=== PATIENT | male | born 1975 | race Hispanic/Latino ===

== ENCOUNTER 2019-04-04 17:24 | Emergency (ER) | payer OTHER ==
[2019-04-04] MEDS ORDERED: KETOROLAC TROMETHAMINE 30MG/ML ONE (17:45)
[2019-04-04] MEDS ORDERED: DIAZEPAM 5 MG TABLET ONE (17:46)
== END 2019-04-04 19:18 | disposition home or self-care (01) ==
LOC: EDH 17:24
DX: S20.211A Contusion of right front wall of thorax, initial encounter (principal); Z88.0 Allergy status to penicillin; Z87.891 Personal history of nicotine dependence; V59.40XA Driver of pick-up truck or van injured in collision with unspecified motor vehicles in traffic accident, initial encounter; Y93.89 Activity, other specified; Y92.89 Other specified places as the place of occurrence of the external cause; Y99.8 Other external cause status
CPT/HCPCS: 71250; 96372; 99285; J1885